=== PATIENT | female | born 1965 | race Caucasian/White ===

== ENCOUNTER 2017-02-22 07:38 | Emergency (ER) | payer OTHER ==
--- NOTE | 2017-02-22 09:10 | ED NURSING NOTES ---
Clinical Report - Nurses [facility] [address] [place] [address] 02/22/2017 7:39 Patient: KENDRA VALENTE TRIAGE Triage time 07:46. Acuity: LEVEL 3. Chief Complaint: MIGRAINE HEADACHE. Alert. No acute distress. ( Pt. states she has a hx of migraine mcdonnell's. She has seen a neurologist in [facility] in the past. She is concerned because this mcdonnell will not go away.). SEPSIS SCREEN: Sepsis Screen. Negative (no infection suspected/documented). RAMANA COMA SCORE: Ramana Coma Scale: 15- eyes open spontaneously (4); best verbal response- oriented x 4 (5); best motor response- obeys commands (6). --07:51 Radha Verde R.N. 07:46 02/22/17. BP: 124/64. HR: 78. RR: 16. O2 saturation: 100%. Temp: 98.2 F. Pain level now 10/10. --07:51 Radha Verde R.N. Weight: 59.8 kg stated. Height/Length: 66 inches Per Patient. BMI: 21.3. --07:47 Radha Verde R.N. Medications Excedrin Migraine Oral, as needed. --07:49 Radha Verde R.N. Vitamins/Minerals Oral. --07:50 Radha Verde R.N. Allergies None. --07:49 Radha Verde R.N. History Arrived by private vehicle. Historian: patient. Unaccompanied. Primary physician (Dr. Estefany Shrestha). This started last night. She has had nausea and vomiting. Treatment COOK HELPER VEGETABLE: None. PAST MEDICAL HX: Immunizations: status is unknown. SOCIAL HX: Never smoker. No alcohol use or drug use. No recent travel. No infectious disease exposure. No known contact with a sick individual. ABUSE ASSESSMENT: Abuse assessment: The patient was asked "Do you feel safe in your home?" and "Has anyone hurt you or threatened to hurt you?". No report of abuse. SELF HARM ASSESSMENT: A self harm assessment was performed. The patient answered "no" to the question "Do you have thoughts of harming or killing yourself?" and "Have you recently had thoughts about harming or killing others?". NUTRITIONAL RISK ASSESSMENT: The nutritional risk assessment revealed no deficiencies. FUNCTIONAL ASSESSMENT: Functional assessment: no impairments noted. LEARNING NEEDS ASSESSMENT: The learning needs assessment revealed no barriers. --07:51 Radha Verde R.N. PROBLEMS: Headache. Migraine Headache. --07:49 Radha Verde R.N. ADDITIONAL SURGERIES: . --07:49 Radha Verde R.N. Interventions ID band on patient. Ambulatory. --07:51 Radha Verde R.N. PHYSICAL ASSESSMENT Ambulatory to room. GENERAL / NEURO / PSYCH: Alert. Oriented X 4. Appears in no acute distress. Speech within normal limits. HEENT: No facial asymmetry noted. Photophobia present. RESPIRATORY: Respirations not labored. CVS: Capillary refill less than 2 seconds. SKIN: Skin is warm and dry. --07:51 Radha Verde R.N. NURSING PROGRESS NOTES Head of bed elevated. Lights dimmed. Two patient identifiers checked. Call light placed in reach. Side rails up x 2. Bed placed in lowest position. Brakes of bed on. Patient ready for evaluation- chart flagged. --07:51 Radha Verde R.N. 08:10 02/22/2017 Site #1 started via IV in the right antecubital space with an 20g angiocath, with aseptic technique and good blood return; one attempt. Blood drawn: rainbow set. Labeled in the presence of the patient and sent to the lab. Saline lock flushed with 10 mL saline. --08:19 Radha Verde R.N. 08:11 02/22/2017 Started bag #1 1000 mL IV Fluids IV NS (Saline); at 1000 mL/hr over 1 hour(s) via site #1 via IV pump. Allergies verified and confirmed 5 rights. IV patency established. IV site checked: no pain, redness, or swelling. IV flushed thoroughly pre- and post-medication administration. --08:19 Radha Verde R.N. 08:13 02/22/2017 Benadryl (DiphenhydrAMINE HCl) IVP 25 mg given over 1 minute(s) via site #1. Allergies verified, confirmed 5 rights and sedative warning given to the patient. IV patency established. IV site checked: no pain, redness, or swelling. IV flushed thoroughly pre- and post-medication administration. --08:19 Radha Verde R.N. 08:14 02/22/2017 Toradol IVP 30 mg given over 2 minute(s) via site #1. Allergies verified and confirmed 5 rights. IV patency established. IV site checked: no pain, redness, or swelling. IV flushed thoroughly pre- and post-medication administration. --08:19 Radha Verde R.N. 08:17 02/22/2017 Reglan (Metoclopramide HCl) IVP 10 mg given over 3 minute(s) via site #1. Allergies verified and confirmed 5 rights. IV patency established. IV site checked: no pain, redness, or swelling. IV flushed thoroughly pre- and post-medication administration. --08:20 Radha Verde R.N. 08:24 02/22/2017 Decadron IVP 10 mg given over 2 minute(s) via site #1. Allergies verified and confirmed 5 rights. IV patency established. IV site checked: no pain, redness, or swelling. IV flushed thoroughly pre- and post-medication administration. --08:25 Radha Verde R.N. 08:27 02/22/17. BP: 125/70. HR: 68. RR: 16. O2 saturation: 100%. --08:27 Radha Verde R.N. Reassessment after medication administered. She has had no adverse reaction. --08:27 Radha Verde R.N. ( pt states, " Im a little better but it is still throbbing."). --08:53 Radha Verde R.N. 08:53 02/22/17. BP: 115/64. HR: 72. RR: 16. O2 saturation: 98%. Pain level now 8/10. --08:53 Radha Verde R.N. 09:02/22/2017 Morphine IVP 2 mg given over 1 minute(s) via site #1. Allergies verified, confirmed 5 rights and sedative warning given to the patient. IV patency established. IV site checked: no pain, redness, or swelling. IV flushed thoroughly pre- and post-medication administration. --09:09 Radha Verde R.N. 09:10 02/22/17. BP: 113/64. HR: 79. RR: 16. O2 saturation: 100%. --09:10 Radha Verde R.N. 09:10 02/22/2017 IV Fluids IV NS Discontinued: bag #1 infused. Total amount infused: 1000 mL. IV patency established. IV site checked: no pain, redness, or swelling. IV flushed thoroughly. --09:37 Radha Verde R.N. DISPOSITION / DISCHARGE 09:27 02/22/17. BP: 113/64. HR: 79. RR: 15. O2 saturation: 99%. Temp: 98.6 F. Pain level now 7/10. --09:27 Radha Verde R.N. 09:28 02/22/2017 Site #1 removed upon discharge. Catheter intact. Manual pressure and bandaid applied. --:28 Radha Verde R.N. Condition at departure: stable. No learning barriers present. Discharge instructions provided and reviewed with the patient. Reviewed medication(s) side effects, precautions, dosing and course information. Prescription(s) given to the patient. Reviewed referral to family practice for followup. Patient verbalized understanding. Written instructions provided in Togolese. The patient was discharged home and accompanied by balance wheel screw hole tapper. She left the Emergency Department ambulatory and via private vehicle. Asset Protection Manager driving. Medication list reviewed and validated. --:28 Radha Verde R.N. Departure time: :28. --: Radha Verde R.N. Locked/Released at 02/22/2017 9:37 by Radha Verde R.N.
--- NOTE | 2017-02-22 09:10 | ED ORDER SUMMARY ---
..... Patient: KENDRA VALENTE OrderSheet [facility] VisitID: [id number] [address] [place] [address] 51y, F Registration Date/Time: 02/22/2017 ORDER SHEET Weight: 59.8 kg (stated) Allergies: None GENERAL ORDERS: MEDICATION ORDERS: IV FLUIDS: IV NS : initial bolus 1000 mL (1000 mL/hr), then none - for X1 (NOW) (07:55 02/22/2017 Ana Hernandez) (Ack 7:56 SReitz R.N.) (8:19 SReitz R.N.) Benadryl IV 25 mg (NOW) (07:55 02/22/2017 Ana Hernandez) (Ack 7:56 SReitz R.N.) (8:19 SReitz R.N.) Reglan IV 10 mg (NOW) (07:55 02/22/2017 Ana Hernandez) (Ack 7:56 SReitz R.N.) (8:20 SReitz R.N.) Toradol IV 30 mg (NOW) (07:55 02/22/2017 Ana Hernandez) (Ack 7:56 SReitz R.N.) (8:19 SReitz R.N.) Decadron IV 10 mg (NOW) (07:55 02/22/2017 Ana Hernandez) (Ack 7:56 SReitz R.N.) (8:24 SReitz R.N.) Morphine IV 2 mg (HIGH ALERT MEDICATION, NOW) (08:58 02/22/2017 Ana Hernandez) (Ack 9:07 SReitz R.N.) (9:09 SReitz R.N.) ORDER SHEET NOTES: [Electronically signed by Radha Verde R.N. (09:37 02/22/2017)] [Electronically signed by Jass Ascencio Dr. (17:36 02/26/2017)] [Electronically locked/signed by Radha Verde R.N. (09:37 02/22/2017)]
--- NOTE | 2017-02-22 09:10 | ED ORDER SUMMARY ---
..... Patient: KENDRA VALENTE OrderSheet [facility] VisitID: [id number] [address] [place] [address] 51y, F Registration Date/Time: 02/22/2017 ORDER SHEET Weight: 59.8 kg (stated) Allergies: None GENERAL ORDERS: MEDICATION ORDERS: IV FLUIDS: IV NS : initial bolus 1000 mL (1000 mL/hr), then none - for X1 (NOW) (07:55 02/22/2017 Ana Hernandez) (Ack 7:56 SReitz R.N.) (8:19 SReitz R.N.) Benadryl IV 25 mg (NOW) (07:55 02/22/2017 Ana Hernandez) (Ack 7:56 SReitz R.N.) (8:19 SReitz R.N.) Reglan IV 10 mg (NOW) (07:55 02/22/2017 Ana Hernandez) (Ack 7:56 SReitz R.N.) (8:20 SReitz R.N.) Toradol IV 30 mg (NOW) (07:55 02/22/2017 Ana Hernandez) (Ack 7:56 SReitz R.N.) (8:19 SReitz R.N.) Decadron IV 10 mg (NOW) (07:55 02/22/2017 Ana Hernandez) (Ack 7:56 SReitz R.N.) (8:24 SReitz R.N.) Morphine IV 2 mg (HIGH ALERT MEDICATION, NOW) (08:58 02/22/2017 Ana Hernandez) (Ack 9:07 SReitz R.N.) (9:09 SReitz R.N.) ORDER SHEET NOTES: [Electronically signed by Radha Verde R.N. (09:37 02/22/2017)] [Electronically signed by Jass Ascencio Dr. (17:36 02/26/2017)] [Electronically locked/signed by Radha Verde R.N. (09:37 02/22/2017)]
--- NOTE | 2017-02-22 09:10 | ED CLINICAL REPORT ---
Clinical Report - Physicians/Mid Levels [facility] [address] [place] [address] 02/22/2017 7:39 Patient: KENDRA VALENTE Time Seen: 0745. Arrived- By private vehicle. Historian- patient. HISTORY OF PRESENT ILLNESS Chief Complaint: HEADACHE. Is still present (staying the same). This started last night. It was gradual in onset and has been constant but is not gone now. Onset during rest. It is described as similar to previous headaches and "pain". Located in the left hemicranial region. No neck pain. Not located in the facial region. At its maximum, severity described as severe. When seen in the E.D., severity described as severe. Modifying factors: relieved by quiet room and dark room. Not worsened by anything. The patient has had photophobia, nausea and vomiting. No preceding symptoms, numbness or weakness. Similar symptoms previously: None. Recent medical care: Not recently seen/assessed. REVIEW OF SYSTEMS No fever, chest pain, difficulty breathing or skin rash. All systems otherwise negative, except as recorded above. PAST HISTORY See nurses notes. Medications: Vitamins/Minerals Oral. Excedrin Migraine Oral, as needed. Allergies: None. SOCIAL HISTORY Never smoker. No alcohol use or drug use. Is a local resident. ADDITIONAL NOTES The nursing notes have been reviewed. PHYSICAL EXAM Vital Signs: Blood pressure normal. Oxygen saturation normal. Appearance: Alert. No acute distress. Eyes: Pupils equal, round and reactive to light. Eyes normal inspection. (no papilledema. Normal-appearing retinal vasculature). ENT: Ears normal. Nose normal. Pharynx normal. Neck: Normal inspection. Neck supple. CVS: Normal heart rate and rhythm. Heart sounds normal. Pulses normal. Respiratory: No respiratory distress. Breath sounds normal. Abdomen: Soft and nontender. No organomegaly. Skin: Skin warm and dry. Normal skin color. No rash. Normal skin turgor. Extremities: Extremities exhibit normal ROM. No lower extremity edema. Neuro: Oriented X 3. Alert. Mood/affect normal. Speech normal. Cranial nerves normal (as tested). No cerebellar findings. No motor deficit. No sensory deficit. PROGRESS AND PROCEDURES Course of Care: Patient is a pleasant 51 yo female presenting for evaluation of headache. Patient as been evaluated for SAH, increased ICP, meningitis, and space occupying lesion. Patients exam and history are not consistent with these entities. Patient is agreeable to treatment for headache. Medications have been ordered after reviewing allergies and intolerances. Patient will be reevaluated after the medications have been given. Patient was reevaluated and found to be significantly improved. Patient reports being able to return home and follow up with doctor. Repeat examination continues to be benign. I discussed with the patient workup, diagnosis, home care, follow-up, and return precautions. All questions have been answered. The patient expressed understanding of these instructions and was agreeable to them. Do not feel patient needs to be admitted to the hospital or require further ED workup/evaluation. Disposition: Discharged. Condition: good. CLINICAL IMPRESSION Acute headache (left sided). 02/22/2017 07:46 BP: 124/64. HR: 78. RR: 16. O2 saturation: 100%. Temp: 98.2 F. Moderate nausea (acute). Blood pressure normal. Oxygen saturation normal. INSTRUCTIONS Warnings: GENERAL WARNINGS: Return or contact your physician immediately if your condition worsens or changes unexpectedly, if not improving as expected, or if other problems arise. SPECIFICALLY, return if you develop fever, vomiting, numbness, weakness, difficulty thinking, visual disturbances, fainting or extreme fatigue. Your Current Medications: CONTINUE TAKING THE FOLLOWING MEDICATIONS: Excedrin Migraine Oral : prn. Vitamins/Minerals Oral. Prescription Medications: Zofran (orally disintegrating tablets) 4 mg: take 1 orally every 8 hours as needed for nausea and vomiting. Dispense ten (10). No refill. Follow-up: Return to the emergency department as needed. Follow up with your doctor in three days. Reason for referral: recheck today's concerns. Summary of care provided to patient via paper. Screening today revealed the patient's blood pressure to be in the normal range. The patient should follow up with a primary care provider for blood pressure management. Understanding of the discharge instructions verbalized by patient. (Electronically signed by Jass Ascencio Dr. 02/26/2017 17:36)
--- NOTE | 2017-02-22 09:10 | ED NURSING NOTES ---
Clinical Report - Nurses [facility] [address] [place] [address] 02/22/2017 7:39 Patient: KENDRA VALENTE TRIAGE Triage time 07:46. Acuity: LEVEL 3. Chief Complaint: MIGRAINE HEADACHE. Alert. No acute distress. ( Pt. states she has a hx of migraine mcdonnell's. She has seen a neurologist in [facility] in the past. She is concerned because this mcdonnell will not go away.). SEPSIS SCREEN: Sepsis Screen. Negative (no infection suspected/documented). RAMANA COMA SCORE: Ramana Coma Scale: 15- eyes open spontaneously (4); best verbal response- oriented x 4 (5); best motor response- obeys commands (6). --07:51 Radha Verde R.N. 07:46 02/22/17. BP: 124/64. HR: 78. RR: 16. O2 saturation: 100%. Temp: 98.2 F. Pain level now 10/10. --07:51 Radha Verde R.N. Weight: 59.8 kg stated. Height/Length: 66 inches Per Patient. BMI: 21.3. --07:47 Radha Verde R.N. Medications Excedrin Migraine Oral, as needed. --07:49 Radha Verde R.N. Vitamins/Minerals Oral. --07:50 Radha Verde R.N. Allergies None. --07:49 Radha Verde R.N. History Arrived by private vehicle. Historian: patient. Unaccompanied. Primary physician (Dr. Estefany Shrestha). This started last night. She has had nausea and vomiting. Treatment VIDEO PRODUCTION ENGINEER: None. PAST MEDICAL HX: Immunizations: status is unknown. SOCIAL HX: Never smoker. No alcohol use or drug use. No recent travel. No infectious disease exposure. No known contact with a sick individual. ABUSE ASSESSMENT: Abuse assessment: The patient was asked "Do you feel safe in your home?" and "Has anyone hurt you or threatened to hurt you?". No report of abuse. SELF HARM ASSESSMENT: A self harm assessment was performed. The patient answered "no" to the question "Do you have thoughts of harming or killing yourself?" and "Have you recently had thoughts about harming or killing others?". NUTRITIONAL RISK ASSESSMENT: The nutritional risk assessment revealed no deficiencies. FUNCTIONAL ASSESSMENT: Functional assessment: no impairments noted. LEARNING NEEDS ASSESSMENT: The learning needs assessment revealed no barriers. --07:51 Radha Verde R.N. PROBLEMS: Headache. Migraine Headache. --07:49 Radha Verde R.N. ADDITIONAL SURGERIES: . --07:49 Radha Verde R.N. Interventions ID band on patient. Ambulatory. --07:51 Radha Verde R.N. PHYSICAL ASSESSMENT Ambulatory to room. GENERAL / NEURO / PSYCH: Alert. Oriented X 4. Appears in no acute distress. Speech within normal limits. HEENT: No facial asymmetry noted. Photophobia present. RESPIRATORY: Respirations not labored. CVS: Capillary refill less than 2 seconds. SKIN: Skin is warm and dry. --07:51 Radha Verde R.N. NURSING PROGRESS NOTES Head of bed elevated. Lights dimmed. Two patient identifiers checked. Call light placed in reach. Side rails up x 2. Bed placed in lowest position. Brakes of bed on. Patient ready for evaluation- chart flagged. --07:51 Radha Verde R.N. 08:10 02/22/2017 Site #1 started via IV in the right antecubital space with an 20g angiocath, with aseptic technique and good blood return; one attempt. Blood drawn: rainbow set. Labeled in the presence of the patient and sent to the lab. Saline lock flushed with 10 mL saline. --08:19 Radha Verde R.N. 08:11 02/22/2017 Started bag #1 1000 mL IV Fluids IV NS (Saline); at 1000 mL/hr over 1 hour(s) via site #1 via IV pump. Allergies verified and confirmed 5 rights. IV patency established. IV site checked: no pain, redness, or swelling. IV flushed thoroughly pre- and post-medication administration. --08:19 Radha Verde R.N. 08:13 02/22/2017 Benadryl (DiphenhydrAMINE HCl) IVP 25 mg given over 1 minute(s) via site #1. Allergies verified, confirmed 5 rights and sedative warning given to the patient. IV patency established. IV site checked: no pain, redness, or swelling. IV flushed thoroughly pre- and post-medication administration. --08:19 Radha Verde R.N. 08:14 02/22/2017 Toradol IVP 30 mg given over 2 minute(s) via site #1. Allergies verified and confirmed 5 rights. IV patency established. IV site checked: no pain, redness, or swelling. IV flushed thoroughly pre- and post-medication administration. --08:19 Radha Verde R.N. 08:17 02/22/2017 Reglan (Metoclopramide HCl) IVP 10 mg given over 3 minute(s) via site #1. Allergies verified and confirmed 5 rights. IV patency established. IV site checked: no pain, redness, or swelling. IV flushed thoroughly pre- and post-medication administration. --08:20 Radha Verde R.N. 08:24 02/22/2017 Decadron IVP 10 mg given over 2 minute(s) via site #1. Allergies verified and confirmed 5 rights. IV patency established. IV site checked: no pain, redness, or swelling. IV flushed thoroughly pre- and post-medication administration. --08:25 Radha Verde R.N. 08:27 02/22/17. BP: 125/70. HR: 68. RR: 16. O2 saturation: 100%. --08:27 Radha Verde R.N. Reassessment after medication administered. She has had no adverse reaction. --08:27 Radha Verde R.N. ( pt states, " Im a little better but it is still throbbing."). --08:53 Radha Verde R.N. 08:53 02/22/17. BP: 115/64. HR: 72. RR: 16. O2 saturation: 98%. Pain level now 8/10. --08:53 Radha Verde R.N. 09:02/22/2017 Morphine IVP 2 mg given over 1 minute(s) via site #1. Allergies verified, confirmed 5 rights and sedative warning given to the patient. IV patency established. IV site checked: no pain, redness, or swelling. IV flushed thoroughly pre- and post-medication administration. --09:09 Radha Verde R.N. 09:10 02/22/17. BP: 113/64. HR: 79. RR: 16. O2 saturation: 100%. --09:10 Radha Verde R.N. 09:10 02/22/2017 IV Fluids IV NS Discontinued: bag #1 infused. Total amount infused: 1000 mL. IV patency established. IV site checked: no pain, redness, or swelling. IV flushed thoroughly. --09:37 Radha Verde R.N. DISPOSITION / DISCHARGE 09:27 02/22/17. BP: 113/64. HR: 79. RR: 15. O2 saturation: 99%. Temp: 98.6 F. Pain level now 7/10. --09:27 Radha Verde R.N. 09:28 02/22/2017 Site #1 removed upon discharge. Catheter intact. Manual pressure and bandaid applied. --:28 Radha Verde R.N. Condition at departure: stable. No learning barriers present. Discharge instructions provided and reviewed with the patient. Reviewed medication(s) side effects, precautions, dosing and course information. Prescription(s) given to the patient. Reviewed referral to family practice for followup. Patient verbalized understanding. Written instructions provided in Congolese. The patient was discharged home and accompanied by shrimp peeler. She left the Emergency Department ambulatory and via private vehicle. Adult Basic Studies Teacher driving. Medication list reviewed and validated. --:28 Radha Verde R.N. Departure time: :28. --: Radha Verde R.N. Locked/Released at 02/22/2017 9:37 by Radha Verde R.N.
--- NOTE | 2017-02-26 17:36 | ED MAR SUMMARY ---
..... Medication Administration Record [facility] [address] [place] [address] Patient: KENDRA VALENTE Visit ID: [id number] 51y, F Weight: 59.8 kg Height/Length: 66 in BMI: 21.3 ALLERGIES: None Start 08:11 02/22/2017 Radha Verde R.N., Stop 09:10 02/22/2017 Radha Verde R.N. Medication Administered: IV NS (SALINE), Dose: IV Fluids over 1 hour(s), Rate: 1000 mL/hr, Dispensed: 1000 mL bag, Site: #1 right AC. Medication Ordered: IV NS : initial bolus 1000 mL (1000 mL/hr), then none - for X1 (NOW). Given 08:13 02/22/2017 Radha Verde R.N. Medication Administered: BENADRYL [IVP] (DIPHENHYDRAMINE HCL), Dose: 25 mg IVP over 1 minute(s), Site: #1 right AC. Medication Ordered: Benadryl IV 25 mg (NOW). Given 08:14 02/22/2017 Radha Verde R.N. Medication Administered: TORADOL [IVP], Dose: 30 mg IVP over 2 minute(s), Site: #1 right AC. Medication Ordered: Toradol IV 30 mg (NOW). Given 08:17 02/22/2017 Radha Verde R.N. Medication Administered: REGLAN [IVP] (METOCLOPRAMIDE HCL), Dose: 10 mg IVP over 3 minute(s), Site: #1 right AC. Medication Ordered: Reglan IV 10 mg (NOW). Given 08:24 02/22/2017 Radha Verde R.N. Medication Administered: DECADRON [IVP], Dose: 10 mg IVP over 2 minute(s), Site: #1 right AC. Medication Ordered: Decadron IV 10 mg (NOW). Given 09:09 02/22/2017 Radha Verde R.N. Medication Administered: MORPHINE [IVP], Dose: 2 mg IVP over 1 minute(s), Site: #1 right AC. Medication Ordered: Morphine IV 2 mg (HIGH ALERT MEDICATION, NOW).
--- NOTE | 2017-02-26 17:36 | ED DISCHARGE INSTRUCTIONS ---
Patient: KENDRA VALENTE General Instructions [facility] VisitID: [id number] [address] [address] 51y, F Registration Date/Time: 02/22/2017 Acute headache (left sided). 02/22/2017 07:46 BP: 124/64. HR: 78. RR: 16. O2 saturation: 100%. Temp: 98.2 F. Moderate nausea (acute). Blood pressure normal. Oxygen saturation normal. INSTRUCTIONS Warnings: GENERAL WARNINGS: Return or contact your physician immediately if your condition worsens or changes unexpectedly, if not improving as expected, or if other problems arise. SPECIFICALLY, return if you develop fever, vomiting, numbness, weakness, difficulty thinking, visual disturbances, fainting or extreme fatigue. Your Current Medications: CONTINUE TAKING THE FOLLOWING MEDICATIONS: Excedrin Migraine Oral : prn. Vitamins/Minerals Oral. Prescription Medications: Zofran (orally disintegrating tablets) 4 mg: take 1 orally every 8 hours as needed for nausea and vomiting. Dispense ten (10). No refill. Follow-up: Return to the emergency department as needed. Follow up with your doctor in three days. Reason for referral: recheck today's concerns. Summary of care provided to patient via paper. Screening today revealed the patient's blood pressure to be in the normal range. The patient should follow up with a primary care provider for blood pressure management. Understanding of the discharge instructions verbalized by patient. ADDITIONAL INFORMATION Headache [Unspecified] The cause of your headache today is not clear, but it does not appear to be the sign of any serious illness. Under stress, some people tense the muscles of their shoulder, neck and scalp without knowing it. If this condition lasts long enough, a TENSION HEADACHE can occur. A MIGRAINE HEADACHE is caused by changes in blood flow to the brain. A migraine attack may be triggered by emotional stress, hormone changes during the menstrual cycle, oral contraceptives, alcohol use, certain foods containing tyramine, eye strain, weather changes, missing meals, lack of sleep or oversleeping. Other causes of headache include a viral illness with high fever, head injury with concussion, sinus, ear or throat infection, dental pain and TMJ (jaw joint) pain. More serious but less common causes of headache include stroke, brain hemorrhage, brain tumor, meningitis and encephalitis. Home Care: If you were given pain medicine for this headache, do not drive yourself home. Arrange for a ride, instead. When you get home, try to sleep. You should feel much better when you wake up. Apply heat to the back of your neck to relieve neck muscle spasm. Migraine headaches may respond best to an ice pack on the forehead or at the base of the skull. If you are having nausea or vomiting, follow a light diet until your headache is relieved. If you have a migraine type headache, use sunglasses when in the daylight or around bright indoor lighting until symptoms improve. Bright glaring light can worsen this kind of headache. Follow Up with your doctor if the headache is not better within the next 24 hours. If you have frequent headaches you should discuss a treatment plan with your primary care doctor. By being aware of the earliest signs of headache, and starting treatment right away, you may be able to stop the pain yourself. Get Prompt Medical Attention if any of the following occur: Worsening of your head pain or no improvement within 24 hours Repeated vomiting (unable to keep liquids down) Fever of 100.4F (38C) or higher, or as directed by your healthcare provider Stiff neck Extreme drowsiness, confusion or fainting Dizziness, vertigo (dizziness with spinning sensation) Weakness of an arm or leg or one side of the face Difficulty with speech or vision Ondansetron Oral disintegrating tablet What is this medicine? ONDANSETRON (on JAMAAL se adina) is used to treat nausea and vomiting caused by chemotherapy. It is also used to prevent or treat nausea and vomiting after surgery. How should I use this medicine? These tablets are made to dissolve in the mouth. Do not try to push the tablet through the foil backing. With dry hands, peel away the foil backing and gently remove the tablet. Place the tablet in the mouth and allow it to dissolve, then swallow. While you may take these tablets with water, it is not necessary to do so. Talk to your retail event coordinator regarding the use of this medicine in children. Special care may be needed. What side effects may I notice from receiving this medicine? Side effects that you should report to your doctor or health rn critical care as soon as possible: allergic reactions like skin rash, itching or hives, swelling of the face, lips, or tongue breathing problems dizziness fast or irregular heartbeat feeling faint or lightheaded, falls fever and chills swelling of the hands and feet tightness in the chest Side effects that usually do not require medical attention (report to your doctor or health rn critical care if they continue or are bothersome): constipation or diarrhea headache What may interact with this medicine? Do not take this medicine with any of the following medications: -apomorphine -cisapride -dofetilide -dronedarone -pimozide -thioridazine -ziprasidone This medicine may also interact with the following medications: -carbamazepine -phenytoin -rifampicin -tramadol -other medicines that prolong the QT interval (cause an abnormal heart rhythm) What if I miss a dose? If you miss a dose, take it as soon as you can. If it is almost time for your next dose, take only that dose. Do not take double or extra doses. Where should I keep my medicine? Keep out of the reach of children. Store between 2 and 30 degrees C (36 and 86 degrees F). Throw away any unused medicine after the expiration date. What should I tell my health care provider before I take this medicine? They need to know if you have any of these conditions: heart disease history of irregular heartbeat liver disease low levels of magnesium or potassium in the blood an unusual or allergic reaction to ondansetron, granisetron, other medicines, foods, dyes, or preservatives or trying to get breast-feeding What should I watch for while using this medicine? Check with your doctor or health rn critical care as soon as you can if you have any sign of an allergic reaction. You have been given the following additional information: Headache, Unspecified Ondansetron Oral disintegrating tablet (Electronically signed by Jass Ascencio Dr. 02/26/2017 17:36)
--- NOTE | 2017-02-26 17:36 | ED MED RECONCILIATION SUMMARY ---
Patient: KENDRA VALENTE Medication Reconciliation Report [facility] VisitID: [id number] [address] [place] [address] 51y, F Registration Date/Time: 02/22/2017 Weight: 59.8 kg Height/Length: 66 in. BMI: 21.3 ALLERGIES: None The patient's Home Medications are listed below: CONTINUE TAKING THE FOLLOWING MEDICATIONS: Excedrin Migraine Oral Vitamins/Minerals Oral The source(s) of the original Home Medication information: Not obtained. The following Medications were given to the patient in the Emergency Department: IV NS IV Fluids bolus 0, then 1000 mL/hr, administered: 02/22/2017 8:11:00 AM Benadryl [IVP] IVP 25 mg, administered: 02/22/2017 8:13:00 AM Toradol [IVP] IVP 30 mg, administered: 02/22/2017 8:14:00 AM Reglan [IVP] IVP 10 mg, administered: 02/22/2017 8:17:00 AM Decadron [IVP] IVP 10 mg, administered: 02/22/2017 8:24:00 AM Morphine [IVP] IVP 2 mg, administered: 02/22/2017 9:09:00 AM The following Medications were prescribed to the patient: Zofran (orally disintegrating tablets) 4 mg: take 1 orally every 8 hours as needed for nausea and vomiting. Dispense ten (10). No refill. -- Jass Ascencio Dr.
--- NOTE | 2017-02-26 17:36 | ED MED RECONCILIATION SUMMARY ---
Patient: KENDRA VALENTE Medication Reconciliation Report [facility] VisitID: [id number] [address] [place] [address] 51y, F Registration Date/Time: 02/22/2017 Weight: 59.8 kg Height/Length: 66 in. BMI: 21.3 ALLERGIES: None The patient's Home Medications are listed below: CONTINUE TAKING THE FOLLOWING MEDICATIONS: Excedrin Migraine Oral Vitamins/Minerals Oral The source(s) of the original Home Medication information: Not obtained. The following Medications were given to the patient in the Emergency Department: IV NS IV Fluids bolus 0, then 1000 mL/hr, administered: 02/22/2017 8:11:00 AM Benadryl [IVP] IVP 25 mg, administered: 02/22/2017 8:13:00 AM Toradol [IVP] IVP 30 mg, administered: 02/22/2017 8:14:00 AM Reglan [IVP] IVP 10 mg, administered: 02/22/2017 8:17:00 AM Decadron [IVP] IVP 10 mg, administered: 02/22/2017 8:24:00 AM Morphine [IVP] IVP 2 mg, administered: 02/22/2017 9:09:00 AM The following Medications were prescribed to the patient: Zofran (orally disintegrating tablets) 4 mg: take 1 orally every 8 hours as needed for nausea and vomiting. Dispense ten (10). No refill. -- Jass Ascencio Dr.
--- NOTE | 2017-02-26 17:36 | ED MAR SUMMARY ---
..... Medication Administration Record [facility] [address] [place] [address] Patient: KENDRA VALENTE Visit ID: [id number] 51y, F Weight: 59.8 kg Height/Length: 66 in BMI: 21.3 ALLERGIES: None Start 08:11 02/22/2017 Radha Verde R.N., Stop 09:10 02/22/2017 Radha Verde R.N. Medication Administered: IV NS (SALINE), Dose: IV Fluids over 1 hour(s), Rate: 1000 mL/hr, Dispensed: 1000 mL bag, Site: #1 right AC. Medication Ordered: IV NS : initial bolus 1000 mL (1000 mL/hr), then none - for X1 (NOW). Given 08:13 02/22/2017 Radha Verde R.N. Medication Administered: BENADRYL [IVP] (DIPHENHYDRAMINE HCL), Dose: 25 mg IVP over 1 minute(s), Site: #1 right AC. Medication Ordered: Benadryl IV 25 mg (NOW). Given 08:14 02/22/2017 Radha Verde R.N. Medication Administered: TORADOL [IVP], Dose: 30 mg IVP over 2 minute(s), Site: #1 right AC. Medication Ordered: Toradol IV 30 mg (NOW). Given 08:17 02/22/2017 Radha Verde R.N. Medication Administered: REGLAN [IVP] (METOCLOPRAMIDE HCL), Dose: 10 mg IVP over 3 minute(s), Site: #1 right AC. Medication Ordered: Reglan IV 10 mg (NOW). Given 08:24 02/22/2017 Radha Verde R.N. Medication Administered: DECADRON [IVP], Dose: 10 mg IVP over 2 minute(s), Site: #1 right AC. Medication Ordered: Decadron IV 10 mg (NOW). Given 09:09 02/22/2017 Radha Verde R.N. Medication Administered: MORPHINE [IVP], Dose: 2 mg IVP over 1 minute(s), Site: #1 right AC. Medication Ordered: Morphine IV 2 mg (HIGH ALERT MEDICATION, NOW).
== END 2017-02-22 09:00 | disposition home or self-care (01) ==
LOC: ED SRH 07:38
DX: R51 Headache (principal); R11.2 Nausea with vomiting, unspecified